=== PATIENT | female | born 1950 | race Caucasian/White ===

== ENCOUNTER 2023-07-18 10:33 | Emergency (ER) | payer OTHER, SELFPAY ==
[2023-07-18 10:44] VITALS: BP 116/71
--- NOTE | 2023-07-18 11:36 | ED.GENMED ---
History of Present Illness
<Lizzy Loyola PA-C - Last Filed: 07/18/23 14:21>
General
Chief Complaint: Musculo-Skeletal Complaint
Source: patient
Exam Limitations: none
Time Seen by Provider: 07/18/23 11:04
Nursing documentation reviewed up to this point in time: agreed with
Travel History
Have you had any contact with someone who has COVID-19?: No
Do you have any symptoms of coronavirus? Fever > 100 degrees, chills, cough, shortness of breath, sore throat, loss of taste or smell, muscle aches, or headache?: No
History of Present Illness
History of Present Illness:
Patient is a 72-year-old female with history hypothyroid presenting for evaluation of left foot injury. Patient states that this past Sunday she fell in the bathroom injuring her left foot. She endorses pain along her left lateral foot and top of
foot. She has been able to bear very little weight on foot since. She was seen by her primary care's office on Sunday morning where they ordered an outpatient x-ray. Today she received a call from her primary care provider's office letting her
know that there was a fracture seen on the foot x-ray and recommended Ortho follow-up. She was unable to get an appointment at both [facility] and [facility]. She came to the emergency department for further
evaluation/management. She has been taking ibuprofen 600 mg for pain which is helpful
Patient denies any numbness in the left foot. She denies sustaining any other injuries in the fall.
Past History
<Lizzy Loyola PA-C - Last Filed: 07/18/23 14:21>
Past History
ED Past Medical History: Cancer (Squamous cell skin), GERD, Hypothyroidism and Other (Osteoarthritis)
ED Past Surgical History: Cholecystectomy and Gynecological
Social History
Tobacco: Former smoker
Phy Exam
<Lizzy Loyola PA-C - Last Filed: 07/18/23 14:21>
Physical Exam
Physical Exam:
General: In no apparent distress, nontoxic appearing
Vitals: Vital signs stable, afebrile
HEENT: Atraumatic, normocephalic protecting airway
Neck: appears supple, normal range of motion, no cervical spine or midline spinal tenderness
CV: No evidence of cyanosis
Resp: No accessory muscle use
Abd: Non-distended
Extremities: Moderate edema and bruising of left foot worse along lateral malleolus and dorsal aspect of foot, mild tenderness to palpation along lateral foot, midfoot, very minimal tenderness at base of fifth metatarsal; no tenderness at fibular
head, Achilles intact, DP pulses palpable and equal bilaterally, left foot neurovascularly intact; flexion and extension against resistance intact
Neuro: alert and oriented; grossly intact
Psych: Normal affect
Skin: Edema and bruising as noted above
Course
<Lizzy Loyola PA-C - Last Filed: 07/18/23 14:21>
Orders/Labs/Results
Orders:
Orders
07/18/23 12:12
Ortho Boot Left- Treatment ONCE
Short or tall?: Tall
Vital Signs
Initial and Last Documented VS:
Initial Vital Signs
Temp Pulse Resp BP Pulse Ox
98.4 F 70 18 116/71 98
07/18/23 10:44 07/18/23 10:44 07/18/23 10:44 07/18/23 10:44 07/18/23 10:44
Last Documented Vital Signs
Temp Pulse Resp BP Pulse Ox
98.4 F 70 18 116/71 98
07/18/23 10:44 07/18/23 10:44 07/18/23 10:44 07/18/23 10:44 07/18/23 10:44
<Saji Farley MD - Last Filed: 07/18/23 12:33>
Orders/Labs/Results
Orders:
Orders
07/18/23 12:12
Ortho Boot Left- Treatment ONCE
Short or tall?: Tall
Vital Signs
Initial and Last Documented VS:
Initial Vital Signs
Temp Pulse Resp BP Pulse Ox
98.4 F 70 18 116/71 98
07/18/23 10:44 07/18/23 10:44 07/18/23 10:44 07/18/23 10:44 07/18/23 10:44
Last Documented Vital Signs
Temp Pulse Resp BP Pulse Ox
98.4 F 70 18 116/71 98
07/18/23 10:44 07/18/23 10:44 07/18/23 10:44 07/18/23 10:44 07/18/23 10:44
<Lizzy Loyola PA-C - Last Filed: 07/18/23 14:21>
MDM/Problems Addressed
Differential Diagnosis Includes:
Ankle fracture, ankle sprain, foot fracture, foot sprain, Achilles tendon injury
MDM/Problems Addressed:
Patient is a 72-year-old female presenting for evaluation of left ankle injury sustained on Sunday following a mechanical fall. Patient did see primary care on Sunday where she had an x-ray of left foot and left ankle performed. Results reported
to patient this morning demonstrating a fracture of her left ankle. She was unable to obtain prompt orthopedic follow-up so she came to emergency department for evaluation. Patient's vital signs are stable. Exam as above.
I was able to contact patient's primary care office and have x-ray report of left ankle and left foot faxed over to emergency department. Reviewed x-ray report alongside attending which showed a possible mild avulsion fracture of distal fibula.
There is mention of a old versus new mild fracture of base of fifth metatarsal. While she does have some mild tenderness at base of fifth metatarsal there is no concern for displaced fracture. While unlikely to policy change clerk at this
time�offered patient repeat x-ray in emergency department. Patient declined. Will place patient in cast boot and arrange orthopedic follow-up. Patient comfortable with plan. All questions answered.
Chronic conditions affecting care:
N/A
Acute Exacerbation and/or Progression of Chronic Illness:
N/A
<Lizzy Loyola PA-C - Last Filed: 07/18/23 14:21>
*Pulse Oximetry
Patient hypoxic: no
*EKG
Interpreted by ED Provider?: NA
*Aviation Project Manager Interpretation
Rate: Aviation Project Manager- N/A
*Critical Care Note
Total Time (30-74mins, 75-104mins- exclusive of procedures): Not Applicable
Data Reviewed
Review of Other/Old Records Reveals: Radiology Studies
Further Testing Considered But Not Given:
Consider repeat x-ray of left ankle and foot but able to obtain reports from Sunday. Unlikely to policy change clerk at this time.
<Lizzy Loyola PA-C - Last Filed: 07/18/23 14:21>
Patient Management
Discussion with other providers: Recruitment Director (Orthopedics)
ED Attending Note
<Lizzy Loyola PA-C - Last Filed: 07/18/23 14:21>
-
Portions of this chart may have been created with voice recognition software.� Occasional wrong word or��sound alike� substitutions may have occurred due to the inherent limitations of voice recognition software.
<Saji Farley MD - Last Filed: 07/18/23 12:33>
ED Attending Note
Patient seen and examined by attending physician: Yes
I performed the substantive portion of visit, reviewed & personally made and approve the management plan that is documented in note by myself or MELANIA.: Yes
ED Attending Note:
72-year-old female left leg fell asleep on the toilet days ago. She then fell into the bathtub causing a left ankle injury. Outpatient x-ray showed a small chip fracture of the distal fibula and a questionable linear density along the base of the
fifth metatarsal. Difficulties getting into see orthopedics and came here for evaluation. No other injury or complaint. Local numbness and leg weakness that was transient on the toilet has totally resolved.
General: Nontoxic appearing in no distress
Skin: Warm and dry, no rash
Neuro: Alert, nontoxic, grossly nonfocal
Psychiatric: Good eye contact and appropriate
Musculoskeletal: Swelling and ecchymosis to the left foot lateral malleolus greater than medial. Some point tenderness to the lateral malleolus. Ecchymosis and swelling to the dorsal foot with tenderness at the base of the fifth metatarsal. Good
distal pulses and color. Achilles intact
X-ray report reviewed. Offered repeat x-ray although would not change emergent treatment. Cast boot less weightbearing crutches were offered and orthopedic follow-up. We will contact orthopedics. There possibly is a fracture based on the
clinical findings that would also be at the base of the fifth metatarsal. However nondisplaced.
Discharge Plan
Departure
Patient Disposition: Home (Routine Discharge)
Date of Disposition: 07/18/23
Time of Disposition: 12:33
Patient with high blood pressure during this ER visit?: No
Condition: Good
Covid-19: Not Applicable
Discharge Problem:
Avulsion fracture of distal fibula
Instructions: Ankle Sprain (DC), Ankle Fracture (DC)
Prescriptions:
No Action
alprazolam 1 MG tablet
2 - 3 mg PO HS
Patient Comments:
10/01/2022: last filled 09/22/22, 120 tabs for 30 days from [facility]#[id number]
levothyroxine 75 MCG tablet
75 mcg PO DAILY@0600
Saccharomyces boulardii 250 mg Capsule
250 mg PO BID Qty: 0 0RF
amoxicillin-pot clavulanate 500-125 mg tablet
1 tab PO Q12H Qty: 14 0RF
Referrals:
Blaise Pickett MD [Active] - Next open appointment
Radha Foreman MD [Family Provider] -
Activity Restrictions/Additional Instructions:
- Return to the emergency department for any intractable pain, severe/worsening redness, swelling of left ankle/foot, numbness or tingling in left foot, inability to ambulate, worsening current symptoms, or any other concerns
-You can take Motrin/Tylenol as needed for discomfort. Rest, ice, elevate left foot and ankle
-You should keep left foot in cast boot until cleared by orthopedics. Use cane as needed for weight bearing
-Follow-up with orthopedics with next available appointment for further evaluation/management. You should call office later today.
Interventions
Interventions:
*ED COVID-19 Vaccine History Last Done: 07/18/23 10:46
*Nursing Disposition Last Done: 07/18/23 12:40
ED-Musculoskeletal Assessment Last Done: 07/18/23 12:28
Discharge Date and Time
Discharge Date/Time: 07/18/23 12:40
Print Language: [place]
== END 2023-07-18 12:40 | disposition home or self-care (01) ==
LOC: EMR 10:33
PROVIDERS: EMERGENCY PHYSICIAN Emergency Medicine; FAMILY PHYSICIAN Family Medicine
DX: S82.832A Other fracture of upper and lower end of left fibula, initial encounter for closed fracture (principal); W18.2XXA Fall in (into) shower or empty bathtub, initial encounter; E03.9 Hypothyroidism, unspecified; Z87.891 Personal history of nicotine dependence
CPT/HCPCS: 99283